=== PATIENT | male | born 1970 | race Caucasian/White ===

== ENCOUNTER 2019-01-13 20:13 | Emergency (ER) | payer BC ==
[2019-01-13] MEDS ORDERED: methylPREDNISolone Sodium Succinate 125 MG/2 ML SDV IM ONE (21:07)
[2019-01-13] MEDS ORDERED: Albuterol/Ipratropium 3.0-0.5 MG/3 ML Neb Soln NEB ONE (21:07)
--- NOTE | 2019-01-13 21:14 | EDM.PDOC ---
ED HPI GENERAL MEDICAL PROBLEM - General Chief Complaint: Respiratory Problem Stated Complaint: cough Time Seen by Provider: 01/13/19 20:49 - History of Present Illness INITIAL COMMENTS - FREE TEXT/NARRATIVE: Patient presents with persistent dry cough worse today but off and on for months. He thinks it is asthma related and has been taking albuterol nebs twice after work and evening along with his regular Advair and rescue inhaler ( albuterol). No fever or cold symptoms. He has never tried Singulair. He also happens to be on Lisinopril but says he had problems with cough prior to starting it. He finished a 5-day course of prednisone 20 mg tid, two weeks ago for uvular swelling and cough. Chest Pain Score (Numeric/FACES): 4 - Related Data Allergies Allergy/AdvReac Type Severity Reaction Status Date / Time grass pollen-perennial rye, Allergy Other Verified 01/13/19 20:14 standar house dust Allergy Other Verified 01/13/19 20:14 mold Allergy Unknown Other Uncoded 04/27/15 08:48 feathers Allergy Other Uncoded 05/27/14 19:58 Home Meds: Home Meds Albuterol [Proventil Neb Soln] 1 dose INH ASDIRECTED PRN 05/27/14 [History] Adalimumab [Humira] 01/13/19 [History] Fluticasone/Salmeterol [Advair 250-50] 1 dose INH BID 01/13/19 [History] Lisinopril 10 mg PO DAILY 01/13/19 [History] Travoprost [Travatan Z] 1 drop EYEBOTH QPM 01/13/19 [History] Past Medical History HEENT History: Reports: Allergic Rhinitis, Impaired Vision, Other (See Below) Other HEENT History: seasonal allergies Respiratory History: Reports: SOB, Other (See Below) Other Respiratory History: coughing spells Gastrointestinal History: Reports: Cholelithiasis Dermatologic History: Reports: Psoriasis - Infectious Disease History Infectious Disease History: Reports: Influenza - Past Surgical History GI Surgical History: Reports: Cholecystectomy Social & Family History - Tobacco Use Smoking Status *Q: Never Smoker - Recreational Drug Use Recreational Drug Use: No - Living Situation & Occupation Living situation: Reports: Occupation: Employed ED ROS GENERAL - Review of Systems Review Of Systems: See Below Constitutional: Denies: Fever, Chills, Malaise, Weakness HEENT: Denies: Ear Pain, Throat Pain, Vision Change Respiratory: Reports: Cough (dry). Denies: Shortness of Breath (except when coughing spells), Wheezing Cardiovascular: Denies: Chest Pain, Lightheadedness, Syncope Endocrine: Reports: No Symptoms GI/Abdominal: Reports: No Symptoms : Reports: No Symptoms Musculoskeletal: Reports: No Symptoms Skin: Reports: No Symptoms Neurological: Reports: No Symptoms Psychiatric: Reports: No Symptoms ED EXAM, GENERAL - Physical Exam Exam: See Below Exam Limited By: No Limitations General Appearance: Alert, WD/WN, No Apparent Distress Eye Exam: Bilateral Eye: EOMI, Normal Inspection, PERRL Ears: Normal External Exam, Hearing Grossly Normal Nose: Normal Inspection, No Blood Throat/Mouth: Normal Inspection, Normal Lips, Normal Teeth, Normal Gums, Normal Oropharynx, Normal Voice, No Airway Compromise Head: Atraumatic, Normocephalic Neck: Normal Inspection, Supple, Non-Tender, Full Range of Motion. No: Carotid Bruit Respiratory/Chest: Lungs Clear, No Accessory Muscle Use, Prolonged Expiration ( moderately prolonged as well as inspiration) Cardiovascular: Normal Peripheral Pulses, Regular Rate, Rhythm, No Murmur Peripheral Pulses: 2+: Carotid (L), Carotid (R), Radial (L), Radial (R), Posterior Tibial (L), Posterior Tibial (R) GI/Abdominal: Soft, Non-Tender, No Distention Back Exam: Normal Inspection, Full Range of Motion Extremities: Normal Inspection, Normal Range of Motion, Non-Tender Neurological: Alert, Oriented, Normal Cognition, No Motor/Sensory Deficits Psychiatric: Normal Affect, Normal Mood Skin Exam: Warm, Dry, Intact, Normal Color, No Rash Course - Vital Signs Last Recorded V/S: Last Vital Signs Temp 98.1 F 01/13/19 20:21 Pulse 100 01/13/19 20:21 Resp 20 01/13/19 20:44 BP 110/66 01/13/19 20:44 Pulse Ox 95 01/13/19 20:44 - Orders/Labs/Meds Orders: Active Orders 24 hr Category Date Time Status RT Aerosol Therapy [RC] ASDIRECTED Care 01/13/19 21:07 Ordered Chest 2V [CR] Stat Exams 01/13/19 20:37 Stop Req Albuterol/Ipratropium [DuoNeb 3.0-0.5 MG/3 ML] Med 01/13/19 21:07 Once 3 ml NEB ONETIME ONE methylPREDNISolone Sod Succ [Solu-MEDROL] Med 01/13/19 21:07 Once 125 mg IM ONETIME ONE - Re-Assessments/Exams Free Text/Narrative Re-Assessment/Exam: 01/13/19 21:48 Cough was frequent and persistent. Administered Solu-Medrol 125 mg IM and a DuoNeb. This helped the cough noticeably and increased air flow with respirations significantly as well. Discussed findings and treatment plan with patient and his . He is planning to follow up with [facility] tomorrow if possible and requests a work note for this. Patient stable and appears much more comfortable now. Departure - Departure Time of Disposition: 21:46 Disposition: Home, Self-Care 01 Condition: Good Clinical Impression: Cough variant asthma - Discharge Information Referrals: PCP,Unknown [Primary Care Provider] - Additional Instructions: 1. Drink 8 cups of water daily. 2. Make sure to take your asthma medications as directed and using the nebulizer in the morning before work would be good to try. 3. If you follow up with your PCP tomorrow as planned, let him know you had a DuoNeb and Solu-Medrol 125 mg IM tonight in ER that helped and now you are wondering if you should take another course of prednisone. Also ask about Singulair if it hasn't been tried with you. You could ask if he thinks Lisinopril could be giving you the "COCO inhibitor cough" but his is less likely since you had cough problems prior to starting it. 4. Return to ER as needed. - My Orders Last 24 Hours: My Active Orders 01/13/19 20:37 Chest 2V [CR] Stat 01/13/19 21:07 RT Aerosol Therapy [RC] ASDIRECTED Albuterol/Ipratropium [DuoNeb 3.0-0.5 MG/3 ML] 3 ml NEB ONETIME ONE methylPREDNISolone Sod Succ [Solu-MEDROL] 125 mg IM ONETIME ONE - Assessment/Plan Last 24 Hours: My Active Orders 01/13/19 20:37 Chest 2V [CR] Stat 01/13/19 21:07 RT Aerosol Therapy [RC] ASDIRECTED Albuterol/Ipratropium [DuoNeb 3.0-0.5 MG/3 ML] 3 ml NEB ONETIME ONE methylPREDNISolone Sod Succ [Solu-MEDROL] 125 mg IM ONETIME ONE
[2019-01-13 22:04] VITALS: BP 126/55; PULSE 92
--- NOTE | 2019-01-14 07:26 | CR ---
[id number] RAD/RAD Chest PA And Lateral EXAM: FRONTAL AND LATERAL CHEST INDICATION: Cough and shortness of breath. COMPARISON: April 26, 2015. DISCUSSION: The heart is at upper limits of normal for size with early central vascular congestion suggested. No focal infiltrates are identified. IMPRESSION: 1. Cardiomegaly with early congestive heart failure. Harley Griggs MD 01/14/19 0725 Thank you for allowing us to participate in the care of your patient.
== END 2019-01-13 21:55 | disposition home or self-care (01) ==
LOC: KA.ED 20:13
DX: J45.991 Cough variant asthma (principal); Z91.09 Other allergy status, other than to drugs and biological substances; Z79.51 Long term (current) use of inhaled steroids
CPT/HCPCS: 71046; 94640; 99283-25; J2930; J7620-GY

== ENCOUNTER 2020-06-25 11:30 | Emergency (ER) | payer BC ==
[2020-06-25 11:48] VITALS: BP 136/85; PULSE 91
--- NOTE | 2020-06-25 12:01 | EDM.PDOC ---
ED HPI GENERAL MEDICAL PROBLEM - General Chief Complaint: General Stated Complaint: TOOTHACHE Time Seen by Provider: 06/25/20 11:56 Source of Information: Reports: Patient History Limitations: Reports: No Limitations - History of Present Illness INITIAL COMMENTS - FREE TEXT/NARRATIVE: 49 YO WM PRESENTS TO ER WITH TOOTHACHE AND FACIAL SWELLING WHICH BEGAN 2 DAYS AGO. PT REPORTS HE HAS HAD ISSUES WITH HIS UPPER RIGHT SECOND MOLAR IT'S BROKEN BUT HAS NEVER HAD ANY HISTORY OF INFECTION IN THE PAST. PT DENIES HEADACHE/NECK PAIN, NO FEVER/CHILLS, NO NAUSEA/VOMITING. Duration: Day(s): (2) Location: Reports: Face Quality: Reports: Ache Severity: Moderate Improves with: Reports: None Worsens with: Reports: None Associated Symptoms: Reports: No Other Symptoms Treatments VOICE ENGINEER: Reports: Other (see below) Other Treatments VOICE ENGINEER: naproxen - Related Data Allergies Allergy/AdvReac Type Severity Reaction Status Date / Time cat dander Allergy Respiratory Verified 06/25/20 11:49 Distress dog dander Allergy Respiratory Verified 06/25/20 11:49 Distress grass pollen Allergy Respiratory Verified 06/25/20 11:49 Distress grass pollen-perennial rye, Allergy Other Verified 01/13/19 20:14 standar house dust Allergy Other Verified 01/13/19 20:14 mold Allergy Unknown Other Uncoded 04/27/15 08:48 feathers Allergy Other Uncoded 05/27/14 19:58 Home Meds: Home Meds Albuterol [Proventil Neb Soln] 1 dose INH ASDIRECTED PRN 05/27/14 [History] Fluticasone/Salmeterol [Advair 250-50] 1 dose INH BID 01/13/19 [History] Travoprost [Travatan Z] 1 drop EYEBOTH QPM 01/13/19 [History] lisinopriL [Lisinopril] 10 mg PO DAILY 01/13/19 [History] Adalimumab [Humira] 0.8 ml SUBCUT Q14D 06/25/20 [History] Amoxicillin 875 mg PO BID #20 tablet 06/25/20 [Rx] Folic Acid 1 mg PO DAILY 06/25/20 [History] Ibuprofen [Motrin] 800 mg PO TID #15 tablet 06/25/20 [Rx] Methotrexate 15 mg PO Q7D 06/25/20 [History] Montelukast Sodium [Singulair] 10 mg PO BEDTIME 06/25/20 [History] Past Medical History HEENT History: Reports: Allergic Rhinitis, Impaired Vision, Other (See Below) Other HEENT History: seasonal allergies Respiratory History: Reports: SOB, Other (See Below) Other Respiratory History: coughing spells Gastrointestinal History: Reports: Cholelithiasis Dermatologic History: Reports: Psoriasis - Infectious Disease History Infectious Disease History: Reports: Influenza - Past Surgical History GI Surgical History: Reports: Cholecystectomy Social & Family History - Living Situation & Occupation Living situation: Reports: Occupation: Employed ED ROS GENERAL - Review of Systems Review Of Systems: See Below Constitutional: Reports: No Symptoms HEENT: Reports: Dental Pain Respiratory: Reports: No Symptoms Cardiovascular: Reports: No Symptoms Endocrine: Reports: No Symptoms GI/Abdominal: Reports: No Symptoms : Reports: No Symptoms Musculoskeletal: Reports: No Symptoms Skin: Reports: No Symptoms Neurological: Reports: No Symptoms Psychiatric: Reports: No Symptoms Hematologic/Lymphatic: Reports: No Symptoms Immunologic: Reports: No Symptoms ED EXAM, GENERAL - Physical Exam Exam: See Below Exam Limited By: No Limitations General Appearance: Alert, WD/WN, No Apparent Distress Ears: Normal External Exam, Normal Canal, Hearing Grossly Normal, Normal TMs Nose: Normal Inspection, Normal Mucosa, No Blood Throat/Mouth: Normal Inspection, Normal Lips, Normal Gums, Normal Oropharynx, Normal Voice, No Airway Compromise, Other (SWELLING TO RIGHT SIDE OF FACE; 2ND MOLAR BROKEN WITHOUT OBVIOUS ABSCESS) Head: Atraumatic, Normocephalic Neck: Normal Inspection, Supple, Non-Tender, Full Range of Motion Respiratory/Chest: No Respiratory Distress, Lungs Clear, Normal Breath Sounds, No Accessory Muscle Use, Chest Non-Tender Cardiovascular: Normal Peripheral Pulses, Regular Rate, Rhythm, No Edema, No Gallop, No JVD, No Murmur, No Rub GI/Abdominal: Normal Bowel Sounds, Soft, Non-Tender, No Organomegaly, No Distention, No Abnormal Bruit, No Mass Back Exam: Normal Inspection, Full Range of Motion, NT Extremities: Normal Inspection, Normal Range of Motion, Non-Tender, Normal Capillary Refill, No Pedal Edema Neurological: Alert, Oriented, CN II-XII Intact, Normal Cognition, Normal Gait, Normal Reflexes Psychiatric: Normal Affect, Normal Mood Skin Exam: Warm, Dry, Intact, Normal Color, No Rash Lymphatic: No Adenopathy Course - Vital Signs Last Recorded V/S: Last Vital Signs Temp 99.3 F 06/25/20 11:39 Pulse 91 06/25/20 11:39 Resp 18 06/25/20 11:39 BP 136/85 06/25/20 11:39 Pulse Ox 95 06/25/20 11:39 Departure - Departure Time of Disposition: 12:07 Disposition: Home, Self-Care 01 Condition: Good Clinical Impression: Dental infection - Discharge Information Prescriptions: Amoxicillin 875 mg PO BID #20 tablet Ibuprofen [Motrin] 800 mg PO TID #15 tablet Instructions: Dental Abscess Referrals: Janae Hitchcock PA-C [Primary Care Provider] - Additional Instructions: 1. DISCHARGE HOME 2. AMOXIL 875MG TWICE/DAY X 10 DAYS 3. MOTRIN 800MG 3X/DAY X 5 DAYS 4. HYDROGEN PEROXIDE ORAL RINSE AFTER EACH MEAL AND BEFORE BEDTIME 5. FOLLOW UP WITH DENTIST NEXT 72 HOURS FOR FURTHER EVALUATION AND TREATMENT 6. RETURN TO ER FOR WORSENING SYMPTOMS Sepsis Event Note (ED) - Evaluation Sepsis Screening Result: No Definite Risk - Focused Exam Vital Signs: Vital Signs Temp Pulse Resp BP Pulse Ox 06/25/20 11:39 99.3 F 91 18 136/85 95 - Assessment/Plan Assessment:: 1. 2ND UPPER RIGHT MOLAR DENTAL INFECTION Plan: 1. DISCHARGE HOME 2. AMOXIL 875MG TWICE/DAY X 10 DAYS 3. MOTRIN 800MG 3X/DAY X 5 DAYS 4. HYDROGEN PEROXIDE ORAL RINSE AFTER EACH MEAL AND BEFORE BEDTIME 5. FOLLOW UP WITH DENTIST NEXT 72 HOURS FOR FURTHER EVALUATION AND TREATMENT 6. RETURN TO ER FOR WORSENING SYMPTOMS
== END 2020-06-25 12:15 | disposition home or self-care (01) ==
LOC: KA.ED 11:30
DX: K04.7 Periapical abscess without sinus (principal); Z91.048 Other nonmedicinal substance allergy status; Z79.899 Other long term (current) drug therapy
CPT/HCPCS: 99282

== ENCOUNTER 2022-02-21 18:25 | Emergency (ER) | payer BC ==
[2022-02-21 18:32] VITALS: BP 141/78; PULSE 103
[2022-02-21] MEDS: Azithromycin 250 MG Tab PO ONE (18:57)
[2022-02-21] MEDS: predniSONE 20 MG Tab PO ONE (18:57)
[2022-02-21 19:35] LABS: RESPIRATORY SYNCYTIAL VIR NAA NEGATIVE (NEGATIVE)
[2022-02-21 19:39] LABS: CORONAVIRUS COVID-19 NAA NEGATIVE (NEGATIVE)
== END 2022-02-21 19:20 | disposition home or self-care (01) ==
LOC: KA.ED 18:25
DX: J40 Bronchitis, not specified as acute or chronic (principal); Z91.048 Other nonmedicinal substance allergy status; Z20.822 Contact with and (suspected) exposure to COVID-19
CPT/HCPCS: 0241U; 71046; 99283; 99284; A9270-GY; J7512